=== PATIENT | female | born 1945 | race Caucasian/White ===

== ENCOUNTER 2016-09-29 05:01 | Emergency (ER) | payer OTHER, MEDICARE ==
[~2016-09-29] VITALS: Ht 152.4 cm; Wt 55.3 kg
[~2016-09-29 05:01] MED LIST: Ativan PO; CELEXA10 MG PO; CELEXA20 MG PO; COGENTIN1 MG PO; COLACE100 MG PO; NORCO 5/3251 TABLET PO; PAXIL; PAXIL10 MG PO; PROMETHAZINE HC25 M1 PO; PROTONIX40 MG PO; Paxil PO; SIMVASTATIN40 MG PO; TRILAFON8 M1 PO; TRILAFON8 MG PO; ZOFRAN4 MG PO; Zocor PO
[2016-09-29] MEDS ORDERED: GABAPENTIN100 MG PO (05:27)
[2016-09-29] MEDS ORDERED: TRAMADOL HCL50 MG PO (05:27)
[2016-09-29 06:04] LABS: CHLORIDE 102 mEq/L (99-109); HEMATOCRIT 37.8 % (36.0-46.0); MCH 30.5 PG (29.0-34.0); MCHC 35.2 G/DL (30.0-36.0); MCV 86.7 FL (83-99); MEAN PLAT.VOLUME 8.7 uM^3 (9.5-12.4); PLATELET COUNT 203 K/uL (156-360); POTASSIUM 3.7 mEq/L (3.7-5.4); RBC DIS.WIDTH-CV 12.8 % (11.8-14.6); RBC DIS.WIDTH-SD 39.9 % (39-53); RED BLOOD COUNT 4.36 M/uL (3.80-5.20); SODIUM 138 mEq/L (136-147); WHITE BLOOD COUNT 5.8 K/uL (4.1-10.2)
[2016-09-29 06:07] LABS: GLUCOSE 149 mg/dL (70-99)
[2016-09-29 06:08] LABS: ANION GAP 15 MEQ/L (2-14); TOTAL BILIRUBIN 0.5 mg/dL (0.0-1.0)
[2016-09-29 06:10] LABS: ALKALINE PHOSPHATASE 85 IU/L (3-129); GFR ESTIMATE (CALCULATED) > 59 mL/min/
[2016-09-29 06:11] LABS: UREA NITROGEN (BUN) 17 mg/dL (9-23)
[2016-09-29 06:12] LABS: DIRECT BILIRUBIN 0.2 mg/dL (0.0-0.3)
[2016-09-29 06:14] LABS: CREATINE KINASE 97 IU/L (1-294); LIPASE 16 U/L (1.0-51.0); TOTAL CK 97 IU/L (1-294)
[2016-09-29 06:20] LABS: CK-MB 2.4 ng/mL (0.0-4.9)
[2016-09-29 06:52] LABS: ADD MIUA? NO; BILIRUBIN NEGATIVE; BLOOD NEGATIVE; COLOR YELLOW ((YELLOW)); GLUCOSE (STRIP) NEGATIVE; KETONES NEGATIVE; LEUKOCYTES NEGATIVE; NITRITE NEGATIVE; PH, URINE 7.5 (5-8); PROTEIN (STRIP) NEGATIVE; SPECIFIC GRAVITY 1.014 (1.000-1.030); UCUL ADDED? NO; UROBILINOGEN 0.2 MG/DL (0.2-1.0)
[2016-09-29 09:46] VITALS: BP 157/90
== END 2016-09-29 09:47 ==
LOC: EME 05:01
PROVIDERS: Emergency Medicine
DX: E86.0 Dehydration (principal); R53.1 Weakness; R10.9 Unspecified abdominal pain
CPT/HCPCS: 74176; 80048; 80076; 81003; 82550; 82553; 83690; 85027; 87086; 99281; 99285; J2405; J7030

== ENCOUNTER 2016-12-20 10:42 | Inpatient (IN) | payer OTHER, MEDICARE ==
[~2016-12-20] VITALS: Ht 154.9 cm; Wt 43.7 kg
[~2016-12-20 10:42] MED LIST changes: +GABAPENTIN100 MG PO; +TRAMADOL HCL50 MG PO
[2016-12-20 11:52] LABS: EOSINOPHIL (%) 0.2 % (0-5); HEMATOCRIT 38.7 % (36.0-46.0); IMMATURE GRANULOCYTE (%) 0.5 % (0.0-0.7); INSTRUMENT ABS NEUTROPHIL CT 3.4 K/uL; LYMPHOCYTE COUNT 0.6 K/uL (1.0-2.8); MCHC 33.6 G/DL (30.0-36.0); MCV 89.2 FL (83-99); MEAN PLAT.VOLUME 9.7 uM^3 (9.5-12.4); MONOCYTE (%) 7.9 % (3-12); MONOCYTE COUNT 0.4 K/uL (0-0.8); NEUTROPHIL (%) 76.7 % (45-76); NEUTROPHIL COUNT 3.4 K/uL (1.8-6.4); PLATELET COUNT 246 K/uL (156-360); RBC DIS.WIDTH-CV 13.1 % (11.8-14.6); RBC DIS.WIDTH-SD 42.7 % (39-53); RED BLOOD COUNT 4.34 M/uL (3.80-5.20); WHITE BLOOD COUNT 4.4 K/uL (4.1-10.2)
[2016-12-20 12:00] LABS: CHLORIDE 101 mEq/L (99-109); SODIUM 141 mEq/L (136-147)
[2016-12-20 12:02] LABS: GLUCOSE 63 mg/dL (70-99)
[2016-12-20 12:03] LABS: ANION GAP 20 MEQ/L (2-14)
[2016-12-20 12:04] LABS: TOTAL BILIRUBIN 0.9 mg/dL (0.0-1.0)
[2016-12-20 12:06] LABS: ALKALINE PHOSPHATASE 62 IU/L (3-129); GFR ESTIMATE (CALCULATED) 52 mL/min/
[2016-12-20 12:07] LABS: UREA NITROGEN (BUN) 33 mg/dL (9-23)
[2016-12-20] MEDS ORDERED: TRAZODONE HCL50 MG PO (16:08)
[2016-12-20] MEDS ORDERED: LIPITOR10 MG PO (16:08)
[2016-12-20] MEDS ORDERED: GENTAK3.5 GM RIGHT EYE (16:09)
[2016-12-20] MEDS ORDERED: TYLENOL REGULA325 MG PO (16:10)
[2016-12-20] MEDS ORDERED: ARTIFICIAL TEAR1510 BOTH EYES (16:11)
[2016-12-20] MEDS ORDERED: ONE-A-DAY WOME1 EAC1 PO (16:11)
[2016-12-20 16:56] LABS: ADD MIUA? YES; BILIRUBIN NEGATIVE; BLOOD SMALL; COLOR YELLOW ((YELLOW)); GLUCOSE (STRIP) NEGATIVE; KETONES 80; LEUKOCYTES MODERATE; NITRITE NEGATIVE; PROTEIN (STRIP) NEGATIVE; UROBILINOGEN 0.2 MG/DL (0.2-1.0)
[2016-12-20 17:11] LABS: BACTERIA RARE /HPF; EPITHELIAL CELLS RARE /HPF; HYALINE CASTS 0-5 /LPF; MUCUS 2+ /LPF; RED BLOOD CELLS 0-5 /HPF (0-5); UCUL ADDED? NO
[2016-12-20 19:37] VITALS: BP 148/76
[2016-12-20 22:37] VITALS: BP 139/63
[2016-12-21 08:38] VITALS: BP 137/69
[2016-12-21 16:59] VITALS: BP 152/69
[2016-12-21 23:14] VITALS: BP 126/67
[2016-12-22 06:57] LABS: EOSINOPHIL (%) 0.5 % (0-5); HEMATOCRIT 38.1 % (36.0-46.0); IMMATURE GRANULOCYTE (%) 0.3 % (0.0-0.7); LYMPHOCYTE COUNT 0.5 K/uL (1.0-2.8); MCH 29.5 PG (29.0-34.0); MCHC 34.4 G/DL (30.0-36.0); MCV 85.8 FL (83-99); MEAN PLAT.VOLUME 9.7 uM^3 (9.5-12.4); MONOCYTE (%) 7.1 % (3-12); MONOCYTE COUNT 0.4 K/uL (0-0.8); NEUTROPHIL (%) 82.7 % (45-76); PLATELET COUNT 255 K/uL (156-360); RBC DIS.WIDTH-CV 12.9 % (11.8-14.6); RBC DIS.WIDTH-SD 39.9 % (39-53); RED BLOOD COUNT 4.44 M/uL (3.80-5.20)
[2016-12-22 07:16] LABS: ANION GAP 13 MEQ/L (2-14); CHLORIDE 101 MEQ/L (99-109); GFR ESTIMATE (CALCULATED) > 59 mL/min/; POTASSIUM 3.3 MEQ/L (3.7-5.4); SAMPLE HEMOLYSIS CHECK 0; SAMPLE ICTERIC CHECK 0; SAMPLE LIPEMIA CHECK 0; SODIUM 140 MEQ/L (136-147)
[2016-12-22 07:17] LABS: WHITE BLOOD COUNT 6.1 K/uL (4.1-10.2)
[2016-12-22 07:18] LABS: GLUCOSE 86 mg/dL (70-99); UREA NITROGEN (BUN) 6 mg/dL (9-23)
[2016-12-22 08:25] VITALS: BP 126/78
[2016-12-22 16:54] VITALS: BP 163/71
[2016-12-23 00:09] VITALS: BP 159/72
[2016-12-23 06:40] VITALS: BP 138/77
[2016-12-23 14:59] VITALS: BP 153/65
[2016-12-23 23:47] VITALS: BP 133/63
[2016-12-25 08:41] VITALS: BP 141/70
[2016-12-25 16:00] VITALS: BP 154/73
[2016-12-25 22:41] VITALS: BP 142/68
[2016-12-26 03:14] LABS: HEMATOCRIT 38.6 % (36.0-46.0); MCV 87.1 FL (83-99)
[2016-12-26 03:21] VITALS: BP 141/79
[2016-12-26 08:37] VITALS: BP 108/56
[2016-12-26 16:00] VITALS: BP 122/58
[2016-12-27 08:36] VITALS: BP 135/67
[2016-12-27 15:41] VITALS: BP 152/78
[2016-12-28 00:02] VITALS: BP 137/75
[2016-12-28 07:30] VITALS: BP 142/62
[2016-12-28 07:43] LABS: ANION GAP 11 MEQ/L (2-14); CHLORIDE 104 MEQ/L (99-109); GFR ESTIMATE (CALCULATED) > 59 mL/min/; GLUCOSE 137 mg/dL (70-99); POTASSIUM 3.2 MEQ/L (3.7-5.4); SAMPLE HEMOLYSIS CHECK 0; SAMPLE ICTERIC CHECK 0; SAMPLE LIPEMIA CHECK 0; SODIUM 141 MEQ/L (136-147)
[2016-12-28 07:45] LABS: UREA NITROGEN (BUN) 22 mg/dL (9-23)
[2016-12-28 15:25] VITALS: BP 143/65
[2016-12-29 06:23] LABS: EOSINOPHIL (%) 2.8 % (0-5); EOSINOPHIL COUNT 0.1 K/uL (0-0.3); IMMATURE GRANULOCYTE (%) 0.8 % (0.0-0.7); INSTRUMENT ABS NEUTROPHIL CT 2.4 K/uL; LYMPHOCYTE COUNT 0.7 K/uL (1.0-2.8); MCH 29.5 PG (29.0-34.0); MCHC 33.6 G/DL (30.0-36.0); MCV 87.8 FL (83-99); MEAN PLAT.VOLUME 9.4 uM^3 (9.5-12.4); MONOCYTE (%) 10.5 % (3-12); MONOCYTE COUNT 0.4 K/uL (0-0.8); NEUTROPHIL (%) 65.5 % (45-76); NEUTROPHIL COUNT 2.4 K/uL (1.8-6.4); PLATELET COUNT 279 K/uL (156-360); RBC DIS.WIDTH-CV 13.7 % (11.8-14.6); RBC DIS.WIDTH-SD 43.6 % (39-53); RED BLOOD COUNT 3.76 M/uL (3.80-5.20)
[2016-12-29 06:24] LABS: WHITE BLOOD COUNT 3.6 K/uL (4.1-10.2)
[2016-12-29 06:42] LABS: ANION GAP 9 MEQ/L (2-14); CHLORIDE 109 MEQ/L (99-109); GFR ESTIMATE (CALCULATED) > 59 mL/min/; GLUCOSE 117 mg/dL (70-99); SAMPLE HEMOLYSIS CHECK 0; SAMPLE ICTERIC CHECK 0; SAMPLE LIPEMIA CHECK 0; SODIUM 145 MEQ/L (136-147); UREA NITROGEN (BUN) 11 mg/dL (9-23)
[2016-12-29 06:43] LABS: POTASSIUM 3.9 MEQ/L (3.7-5.4)
[2016-12-29 07:38] VITALS: BP 150/69
[2016-12-29 15:35] VITALS: BP 147/71
[2016-12-29 23:20] VITALS: BP 128/67
[2016-12-30 08:22] VITALS: BP 137/58
[2016-12-30 16:37] VITALS: BP 149/93
[2016-12-30 23:33] VITALS: BP 160/71
[2016-12-31 07:36] VITALS: BP 142/67
[2016-12-31 16:06] VITALS: BP 120/69
[2017-01-01] VITALS: BP 139/63
[2017-01-01 06:39] LABS: POINT-OF-CARE METER ID UU13113725
[2017-01-01 08:12] LABS: EOSINOPHIL (%) 1.3 % (0-5); EOSINOPHIL COUNT 0.1 K/uL (0-0.3); HEMATOCRIT 32.8 % (36.0-46.0); IMMATURE GRANULOCYTE (%) 0.8 % (0.0-0.7); INSTRUMENT ABS NEUTROPHIL CT 2.4 K/uL; LYMPHOCYTE COUNT 0.7 K/uL (1.0-2.8); MCH 29.5 PG (29.0-34.0); MCHC 32.9 G/DL (30.0-36.0); MCV 89.6 FL (83-99); MEAN PLAT.VOLUME 8.9 uM^3 (9.5-12.4); MONOCYTE (%) 12.3 % (3-12); MONOCYTE COUNT 0.5 K/uL (0-0.8); NEUTROPHIL (%) 64.7 % (45-76); NEUTROPHIL COUNT 2.4 K/uL (1.8-6.4); PLATELET COUNT 269 K/uL (156-360); RBC DIS.WIDTH-CV 14.1 % (11.8-14.6); RBC DIS.WIDTH-SD 45.5 % (39-53); RED BLOOD COUNT 3.66 M/uL (3.80-5.20); WHITE BLOOD COUNT 3.7 K/uL (4.1-10.2)
[2017-01-01 08:50] LABS: ANION GAP 6 MEQ/L (2-14); CHLORIDE 107 MEQ/L (99-109); GFR ESTIMATE (CALCULATED) > 59 mL/min/; GLUCOSE 109 mg/dL (70-99); SAMPLE HEMOLYSIS CHECK 0; SAMPLE ICTERIC CHECK 0; SAMPLE LIPEMIA CHECK 0; SODIUM 140 MEQ/L (136-147); UREA NITROGEN (BUN) 5 mg/dL (9-23)
[2017-01-01 09:10] LABS: POTASSIUM 4.9 MEQ/L (3.7-5.4)
[2017-01-01 16:14] VITALS: BP 161/58
[2017-01-02 07:37] VITALS: BP 120/67
[2017-01-02 15:18] VITALS: BP 120/57
[2017-01-02 22:34] VITALS: BP 137/62
[2017-01-03 07:44] VITALS: BP 138/85
[2017-01-03 15:00] VITALS: BP 125/91
[2017-01-03 22:12] VITALS: BP 114/72
[2017-01-04 07:17] VITALS: BP 138/69
[2017-01-04 16:30] VITALS: BP 126/98
[2017-01-05 07:18] LABS: ANION GAP 5 MEQ/L (2-14); CHLORIDE 104 MEQ/L (99-109); GFR ESTIMATE (CALCULATED) > 59 mL/min/; GLUCOSE 136 mg/dL (70-99); POTASSIUM 4.1 MEQ/L (3.7-5.4); SAMPLE HEMOLYSIS CHECK 0; SAMPLE ICTERIC CHECK 0; SAMPLE LIPEMIA CHECK 0; SODIUM 141 MEQ/L (136-147); UREA NITROGEN (BUN) 19 mg/dL (9-23)
[2017-01-05 07:43] LABS: EOSINOPHIL (%) 1.4 % (0-5); EOSINOPHIL COUNT 0.1 K/uL (0-0.3); HEMATOCRIT 26.2 % (36.0-46.0); IMMATURE GRANULOCYTE (%) 0.9 % (0.0-0.7); INSTRUMENT ABS NEUTROPHIL CT 3.2 K/uL; LYMPHOCYTE COUNT 0.6 K/uL (1.0-2.8); MCHC 32.8 G/DL (30.0-36.0); MCV 91.3 FL (83-99); MEAN PLAT.VOLUME 9.2 uM^3 (9.5-12.4); MONOCYTE (%) 6.9 % (3-12); MONOCYTE COUNT 0.3 K/uL (0-0.8); NEUTROPHIL (%) 75.2 % (45-76); NEUTROPHIL COUNT 3.2 K/uL (1.8-6.4); PLATELET COUNT 274 K/uL (156-360); RBC DIS.WIDTH-CV 14.6 % (11.8-14.6); RBC DIS.WIDTH-SD 47.6 % (39-53); RED BLOOD COUNT 2.87 M/uL (3.80-5.20); WHITE BLOOD COUNT 4.2 K/uL (4.1-10.2)
[2017-01-05 08:05] VITALS: BP 111/52
[2017-01-05 15:44] VITALS: BP 109/58
[2017-01-05 23:10] VITALS: BP 121/57
[2017-01-06 07:38] VITALS: BP 139/62
[2017-01-06 15:12] VITALS: BP 133/69
[2017-01-06 23:25] VITALS: BP 126/75
[2017-01-07 07:50] VITALS: BP 120/61
[2017-01-07 12:24] VITALS: BP 126/67
[2017-01-07 16:00] VITALS: BP 135/84
[2017-01-08 00:11] VITALS: BP 106/58
[2017-01-08 07:43] VITALS: BP 119/53
[2017-01-08] MEDS ORDERED: NIFEREX-150,FE150 MG GT (13:53)
[2017-01-08] MEDS ORDERED: EFFEXOR37.5 MG GT (13:54)
[2017-01-08] MEDS ORDERED: MIRTAZAPINE15 MG GT (13:54)
[2017-01-08] MEDS ORDERED: PREVACID SOLUTA30 MG GT (13:55)
[2017-01-08] MEDS ORDERED: OLANZAPINE5 MG GT (13:55)
[2017-01-08] MEDS ORDERED: METHYLPHENIDATE5 MG GT (13:55)
[2017-01-08 16:42] VITALS: BP 100/54
== END 2017-01-08 17:07 | DRG 603 ==
LOC: EME → EDBD 10:42 → 5EAST 17:05 → EDOF 17:05 → 5EAST 19:32
PROVIDERS: Emergency Medicine; Internal Medicine
PROC: 0DH63UZ Insertion of Feeding Device into Stomach, Percutaneous Approach (ICD-10-PCS; principal; 2017-01-02)
DX: L03.211 Cellulitis of face (principal); N17.9 Acute kidney failure, unspecified; F02.80 Dementia in other diseases classified elsewhere, unspecified severity, without behavioral disturbance, psychotic disturbance, mood disturbance, and anxiety; G30.9 Alzheimer's disease, unspecified; F33.2 Major depressive disorder, recurrent severe without psychotic features; N39.0 Urinary tract infection, site not specified; R62.7 Adult failure to thrive; E78.5 Hyperlipidemia, unspecified; K21.9 Gastro-esophageal reflux disease without esophagitis; I10 Essential (primary) hypertension; H01.003 Unspecified blepharitis right eye, unspecified eyelid; R79.89 Other specified abnormal findings of blood chemistry; R25.1 Tremor, unspecified; R41.82 Altered mental status, unspecified; K92.1 Melena; E86.0 Dehydration; Z91.19 Patient's noncompliance with other medical treatment and regimen; R32 Unspecified urinary incontinence; R63.0 Anorexia; Z68.1 Body mass index [BMI] 19.9 or less, adult
CPT/HCPCS: 71020; 80048; 80053; 81003; 82948; 83605; 85014; 85018; 85025; 85027; 87086; 99281; 99285; J0696; J1650; J7030; J7042; J7050